=== PATIENT | female | born 1995 | race Caucasian/White ===

== ENCOUNTER 2017-11-23 14:59 | Emergency (ER) | payer OTHER ==
[~2017-11-23] VITALS: Ht 170.2 cm; Wt 60.0 kg
[~2017-11-23 14:59] MED LIST: Z.0.NO CURRENT MEDS
[2017-11-23 15:23] VITALS: BP 102/58; PULSE 79; RESP 20; TEMP 98.3; O2SAT 100
[2017-11-23] MEDS ORDERED: SODIUM CHLORIDE 0.9% FLUSH 10 ML FLUSH IVF PRN (16:15)
[2017-11-23] MEDS ORDERED: SODIUM CHLOR 0.9% 1000 ML INJ 1,000 ML IV ONE (16:15)
[2017-11-23] MEDS ORDERED: PREN1TAB30 (16:18)
[2017-11-23 16:50] LABS: AUTOMATED NEUTROPHIL # 4.7 TH/MM3 (1.8-7.7); BASOPHIL % 0.6 % (0.0-2.0); EOSINOPHIL % 0.6 % (0.0-4.0); HEMATOCRIT 41.1 % (35.0-46.0); LYMPH % 28.9 % (9.0-44.0); LYMPHOCYTE # 2.2 TH/MM3 (1.0-4.8); MEAN CORPUSCULAR HEMOGLOBIN 30.3 PG (27.0-34.0); MEAN CORPUSCULAR HGB CONC 34.1 % (32.0-36.0); MONO % 8.6 % (0.0-8.0); MONOCYTE # 0.7 TH/MM3 (0-0.9); NEUT % 61.3 % (16.0-70.0); PLATELET COUNT 286 TH/MM3 (150-450); RED BLOOD COUNT 4.62 MIL/MM3 (4.00-5.30); RED CELL DISTRIBUTION WIDTH 12.8 % (11.6-17.2); WHITE BLOOD COUNT 7.6 TH/MM3 (4.0-11.0)
[2017-11-23 16:56] LABS: AMORPHOUS SEDIMENT, URINE MOD; BILIRUBIN, URINE NEG (NEG); BLOOD, URINE NEG (NEG); GLUCOSE,URINE NEG (NEG); KETONE, URINE NEG (NEG); MUCUS URINE FEW /lpf (OCC); NITRITE,URINE NEG (NEG); PH, URINE 7.5 (5.0-8.5); SQUAMOUS EPITHELIAL CELL URINE 8 /hpf (0-5); URINE COLOR YELLOW (YELLW/STRAW); URINE LEUKOCYTE ESTERASE NEG (NEG)
[2017-11-23 17:05] LABS: ALBUMIN 4.1 GM/DL (3.4-5.0); ALT (GPT) 15 U/L (10-53); AST (GOT) 14 U/L (15-37); BICARBONATE 25.4 MEQ/L (21.0-32.0); BLOOD UREA NITROGEN 7 MG/DL (7-18); CALCIUM 8.7 MG/DL (8.5-10.1); CHLORIDE 104 MEQ/L (98-107); CREATININE 0.73 MG/DL (0.50-1.00); GLOMERULAR FILTRATION RATE 100 ML/MIN (>89); GLUCOSE,RANDOM 76 MG/DL (74-106); SODIUM (NA) 138 MEQ/L (136-145)
[2017-11-23 17:07] LABS: ALKALINE PHOSPHATASE 52 U/L (45-117); TOTAL BILIRUBIN ADULT 0.4 MG/DL (0.2-1.0); TOTAL PROTEIN 7.7 GM/DL (6.4-8.2)
--- NOTE | 2017-11-23 17:20 | PD ---
HPI Chief Complaint: Respiratory Symptoms Time Seen by Provider: 15:51 Travel History International Travel<30 days: No Contact w/Intl Traveler<30days: No Traveled to known affect area: No History of Present Illness HPI Is a 22-year-old woman presents emergency department complaining of shortness of breath. States that she has shortness of breath ongoing for the past week or so, worse with any movement or with talking, associate with some chest pain and tightness. She is , about 8 weeks or so, LMP 2 9. This is her first . No leg swelling. She has had a lot of trouble with nausea or vomiting. She has medication at the pharmacy but has not picked it up yet for the vomiting. She called her physician referred her to the emergency department. No other complaints. No history. History Past Medical History Medical History: Denies Significant Hx LMP: 09/28/17 : 0 Social History Alcohol Use: No Tobacco Use: No Allergies-Medications (Allergen,Severity, Reaction): Coded Allergies: latex (Verified Allergy, Intermediate, 11/23/17) rash Reported Meds & Prescriptions Reported Meds & Active Scripts Active Reported Vitamin 27-0.8 mg ( Vit W/ Ferrous Fumara) 27 Mg Iron-800 Mcg Tab Review of Systems Except as stated in HPI: all other systems reviewed are Neg Physical Exam Narrative GENERAL: Well-appearing 20-year-old woman, no acute distress. SKIN: Focused skin assessment warm/dry. HEAD: Atraumatic. Normocephalic. EYES: Pupils equal and round. No scleral icterus. No injection or drainage. ENT: No nasal bleeding or discharge. Mucous membranes pink and moist. NECK: Trachea midline. No JVD. CARDIOVASCULAR: Regular rate and rhythm. No murmur appreciated. RESPIRATORY: No accessory muscle use. Clear to auscultation. Breath sounds equal bilaterally. GASTROINTESTINAL: Abdomen soft, non-tender, nondistended. Hepatic and splenic margins not palpable. MUSCULOSKELETAL: No obvious deformities. Data Data Last Documented VS Vital Signs Date Time Temp Pulse Resp B/P (MAP) Pulse Ox O2 Delivery O2 Flow Rate FiO2 11/23/17 16:15 15 99 Room Air 11/23/17 15:23 98.3 79 102/58 (73) Orders Orders Electrocardiogram (11/23/17 ) Complete Blood Count With Diff (11/23/17 16:05) Comprehensive Metabolic Panel (11/23/17 16:05) D-Dimer (11/23/17 16:05) Iv Access Insert/Monitor (11/23/17 16:05) Electrocardiogram (11/23/17 16:05) Chest, Single Ap (11/23/17 16:05) Sodium Chloride 0.9% Flush (Ns Flush) (11/23/17 16:15) Sodium Chlor 0.9% 1000 Ml Inj (Ns 1000 M (11/23/17 16:15) Urinalysis - C+S If Indicated (11/23/17 16:06) Labs Laboratory Tests Test 11/23/17 16:15 11/23/17 16:20 Urine Color YELLOW Urine Turbidity HAZY Urine pH 7.5 Urine Specific [place] 1.023 Urine Protein TRACE mg/dL Urine Glucose (UA) NEG mg/dL Urine Ketones NEG mg/dL Urine Occult Blood NEG Urine Nitrite NEG Urine Bilirubin NEG Urine Urobilinogen LESS THAN 2.0 MG/DL Urine Leukocyte Esterase NEG Urine Squamous Epithelial Cells 8 /hpf Urine Amorphous Sediment MOD Urine Mucus FEW /lpf Microscopic Urinalysis Comment CULT NOT INDICATED White Blood Count 7.6 TH/MM3 Red Blood Count 4.62 MIL/MM3 Hemoglobin 14.0 GM/DL Hematocrit 41.1 % Mean Corpuscular Volume 89.0 FL Mean Corpuscular Hemoglobin 30.3 PG Mean Corpuscular Hemoglobin Concent 34.1 % Red Cell Distribution Width 12.8 % Platelet Count 286 TH/MM3 Mean Platelet Volume 8.0 FL Neutrophils (%) (Auto) 61.3 % Lymphocytes (%) (Auto) 28.9 % Monocytes (%) (Auto) 8.6 % Eosinophils (%) (Auto) 0.6 % Basophils (%) (Auto) 0.6 % Neutrophils # (Auto) 4.7 TH/MM3 Lymphocytes # (Auto) 2.2 TH/MM3 Monocytes # (Auto) 0.7 TH/MM3 Eosinophils # (Auto) 0.0 TH/MM3 Basophils # (Auto) 0.0 TH/MM3 CBC Comment DIFF FINAL Differential Comment D-Dimer Quantitative (PE/DVT) 0.30 MG/L FEU Blood Urea Nitrogen 7 MG/DL Creatinine 0.73 MG/DL Random Glucose 76 MG/DL Total Protein 7.7 GM/DL Albumin 4.1 GM/DL Calcium Level 8.7 MG/DL Alkaline Phosphatase 52 U/L Aspartate Amino Transf (AST/SGOT) 14 U/L Alanine Aminotransferase (ALT/SGPT) 15 U/L Total Bilirubin 0.4 MG/DL Sodium Level 138 MEQ/L Potassium Level 3.7 MEQ/L Chloride Level 104 MEQ/L Carbon Dioxide Level 25.4 MEQ/L Anion Gap 9 MEQ/L Estimat Glomerular Filtration Rate 100 ML/MIN MDM Medical Decision Making Medical Screen Exam Complete: Yes Emergency Medical Condition: Yes Interpretation(s) My review of EKG: Normal sinus rhythm at a rate of 63, normal axis, normal intervals, no acute ischemia. LABS: CBC is unremarkable. CMP unremarkable. D-dimer 0.3 UA is unremarkable My review of chest x-ray: Negative Differential Diagnosis Anxiety, vomiting, pneumothorax, GERD or reflux, PE, other Narrative Course Medical decision making Well 22-year-old woman here with shortness of breath and dyspnea on exertion, chest pain, I think is related to all the vomiting and the reflux. Looks otherwise well. D-dimer is negative. She looks well. No respiratory distress. No wheezing. There is no evidence of heart failure. EKG is normal. Recommend supportive treatment. Diagnosis Primary Impression: Shortness of breath Additional Instructions: Take antibiotics as prescribed. Follow-up with her primary doctor in the next 2-4 days. Med/Other Pt SpecificInfo: No Change to Meds Disposition: 01 DISCHARGE HOME Condition: Stable Aiden Silver MD Nov 23, 2017 17:20
--- NOTE | 2017-11-23 17:31 | RADRPT ---
EXAM DATE/TIME: 11/23/2017 16:29 [facility] COMPARISON: No previous studies available for comparison. INDICATIONS : Shortness of breath and chest pain on left side. MEDICAL HISTORY : None. SURGICAL HISTORY : None. ENCOUNTER: Initial ACUITY: 1 week PAIN SCORE: 3/10 LOCATION: Bilateral chest FINDINGS: A single view of the chest demonstrates the lungs to be symmetrically aerated without evidence of mas s, infiltrate or effusion. The cardiomediastinal contours are unremarkable. Osseous structures are intact. CONCLUSION: The lungs are clear. Benito Burger MD on November 23, 2017 at 17:28 Board Certified Radiologist. This report was verified electronically.
--- NOTE | 2017-11-25 08:21 | EKG ---
Date Performed: 11/23/2017 Time Performed: 15:39:26 PTAGE: 22 years EKG: Sinus rhythm NORMAL ECG NO PREVIOUS TRACING DOCTOR: Tyler Damon Interpretating Date/Time 11/25/2017 08:19:54
== END 2017-11-23 17:43 | disposition home or self-care (01) ==
LOC: NEPD 14:59
DX: O26.891 Other specified pregnancy related conditions, first trimester (principal); R06.02 Shortness of breath; R07.9 Chest pain, unspecified
CPT/HCPCS: 71045; 80053; 81001; 85025; 85379; 93005; 99285; J7030